=== PATIENT | male | born 1970 | race Caucasian/White ===

== ENCOUNTER 2019-12-10 16:38 | Emergency (ER) | payer OTHER ==
[~2019-12-10] VITALS: Ht 180.3 cm; Wt 88.5 kg
[2019-12-10] MEDS ORDERED: ZETIA10 MG (17:06)
[2019-12-10] MEDS ORDERED: ADDERALL 30 MG30 MG (17:06)
== END 2019-12-10 20:19 | disposition home or self-care (01) ==
LOC: ER 16:38
DX: S92.511A Displaced fracture of proximal phalanx of right lesser toe(s), initial encounter for closed fracture (principal); W22.8XXA Striking against or struck by other objects, initial encounter; Y93.89 Activity, other specified; Y92.013 Bedroom of single-family (private) house as the place of occurrence of the external cause; Y99.8 Other external cause status